=== PATIENT | male | born 1980 | race Caucasian/White ===

== ENCOUNTER 2019-07-27 21:33 | Inpatient (IN) | payer MEDICAID ==
[~2019-07-27] VITALS: Ht 185.4 cm; Wt 97.2 kg
[2019-07-27] MEDS ORDERED: DEXAMETHASONE 4 MG/ML, 1ML IVPB ONE (22:00)
[2019-07-27] MEDS ORDERED: AMPICILLIN/SULBACTAM 3 GM in SODIUM CHLORIDE 0.9% 100 ML IV ONE (22:00)
[2019-07-27] MEDS ORDERED: ONDANSETRON 2MG/ML, 2ML IVPush ONE (22:00)
[2019-07-27] MEDS ORDERED: MORPHINE SULFATE 4 MG/ML, 1ML IVPush PRN (22:00)
[2019-07-27] MEDS ORDERED: SODIUM CHLORIDE 0.9% 1,000ML IVBOLUS ONE (22:00)
[2019-07-27] MEDS ORDERED: SODIUM CHLORIDE FLUSH 10ML SYR IVF ONE (22:00)
[2019-07-27] MEDS ORDERED: DEXAMETHASONE 4 MG/ML, 5ML ONE (23:58)
--- NOTE | 2019-07-28 00:15 | NUR ---
FIRST CONTACT WITH PT. PT SITTING UP IN GURNEY, AWAKE/ALERT. NAD NOTED. PT REPORTS R JAW PAIN/SWELLING X TWO DAYS. +SUBJECTIVE FEVERS/DIFFICULTY & PAIN W SWALLOWING. AIRWAY APPEARS PATENT, SPEECH CLEAR. PT MANAGING OWN SECRETIONS. BP/SPO2 MONITORING IN PLACE. IV ESTBALISHED, LABS DRAWN. NO BC DRAWN PER ERP. PT MEDICATED PER EMAR FOR PAIN. PER ERP, HOLD MORPHINE/ZOFRAN AT THIS TIME. PT UPDATED TO POC (CT/LABS, RESULTS, RECHECK) AND DEMONSTRATES UNDERSTANDING.
[2019-07-28 00:25] LABS: BASOPHILS # (AUTO) 0.02 x10^3/uL (0-0.1); BASOPHILS % (AUTO) 0 % (0-1); EOSINOPHILS # (AUTO) 0.19 x10^3/uL (0-0.4); EOSINOPHILS % (AUTO) 1 % (1-7); LYMPHOCYTES # (AUTO) 1.25 x10^3/uL (1-3.4); LYMPHOCYTES % (AUTO) 9 % (22-44); MD NO; MEAN CORPUSCULAR HEMOGLOBIN 30.5 pg (27.5-34.5); MEAN CORPUSCULAR HGB CONC 34.4 g/dL (33.2-36.2); MEAN CORPUSCULAR VOLUME 88.7 fL (81-97); MEAN PLATELET VOLUME 8.5 fL (7.4-10.4); MONOCYTES # (AUTO) 0.99 x10^3/uL (0.2-0.8); MONOCYTES % (AUTO) 7 % (2-9); NEUTROPHILS # (AUTO) 11.99 x10^3/uL (1.8-6.8); NEUTROPHILS % (AUTO) 83 % (42-75); PLATELET COUNT 253 x10^3/uL (130-400); RED BLOOD COUNT 6.14 x10^6/uL (4.38-5.82); RED CELL DISTRIBUTION WIDTH 12.4 % (9.4-14.8)
[2019-07-28 00:35] LABS: ALBUMIN 3.7 g/dL (3.4-5.0); ANION GAP 7 mmol/L (5-15); CALCIUM 9.3 mg/dL (8.5-10.1); CHLORIDE 106 mmol/L (98-107); CREATININE 0.98 mg/dL (0.7-1.3)
--- NOTE | 2019-07-28 01:06 | NUR ---
PT TO CT
[2019-07-28] MEDS ORDERED: OMNIPAQUE 350 MG/ML, 100ML BOTTLE ONE (01:09)
--- NOTE | 2019-07-28 01:30 | NUR ---
PT RESTING IN GURNEY. NO S/S OF ABX RXN NOTED.
--- NOTE | 2019-07-28 01:35 | NUR ---
CALLED SIGNAL SYSTEM TESTING MAINTAINER REGARDING PENDING CT READ. SIGNAL SYSTEM TESTING MAINTAINER CALLED RADIOLOGY FOR READ
--- NOTE | 2019-07-28 02:12 | NUR ---
PT RESTING IN GURNEY W/ EYES CLOSED. EVEN/REGULAR RESPIRATIONS NOTED. PT EASILY ARROUSABLE TO VOICE AND REPORTS IMPROVMENT IN PAIN/SWELLING W MEDICATIONS. BEDSIDE REPORT TO RENATA HERNANDEZ
[2019-07-28] MEDS ORDERED: MORPHINE SULFATE 4 MG/ML, 1ML IVPush PRN (03:00)
[2019-07-28] MEDS ORDERED: ONDANSETRON 2MG/ML, 2ML IVPush PRN ×2 (03:00→05:30)
--- NOTE | 2019-07-28 03:37 | NUR ---
pt resting in bed, pt denied any wants or needs at this time.
[2019-07-28 05:19] VITALS: BP 112/73
[2019-07-28] MEDS ORDERED: SODIUM CHLORIDE 0.9% 1,000 ML IV SCH (05:21)
[2019-07-28] MEDS ORDERED: PROMETHAZINE 25 MG/ML, 1ML IM PRN (05:30)
[2019-07-28] MEDS ORDERED: ACETAMINOPHEN 325 MG TABLET PO PRN (05:30)
[2019-07-28] MEDS ORDERED: OXYcodone IR 5MG TABLET PO PRN (05:30)
[2019-07-28] MEDS ORDERED: BISACODYL 10 MG SUPP PR PRN (05:30)
[2019-07-28] MEDS ORDERED: POLYETHYLENE GLYCOL 17 GM PACKET PO PRN (05:30)
[2019-07-28] MEDS ORDERED: hydrALAzine 20 MG/ML, 1ML IVPush PRN (05:30)
[2019-07-28] MEDS ORDERED: DOCUSATE 100 MG CAPSULE PO PRN (05:30)
[2019-07-28] MEDS ORDERED: ONDANSETRON ODT 4 MG PO PRN (05:30)
[2019-07-28] MEDS ORDERED: morphine SULFATE 10 MG/ML, 1ML IVPush PRN (05:30)
[2019-07-28 06:38] LABS: FREE T4 (FREE THYROXINE) 1.51 ng/dL (0.76-1.46)
[2019-07-28] MEDS: AMPICILLIN/SULBACTAM 3 GM in SODIUM CHLORIDE 0.9% 100 ML IV SCH ×3 (06:41→17:30)
[2019-07-28] MEDS: DEXAMETHASONE 4 MG/ML, 1ML IVPush SCH ×2 (09:49→15:41)
[2019-07-29] MEDS ORDERED: SODIUM CHLORIDE 0.9% 1,000 ML IV SCH (05:21)
== END 2019-07-28 18:20 | disposition left against medical advice (07) | DRG 153 ==
LOC: ED 07-28 02:58 → EDIP 07-28 03:02 → ICU 07-28 04:36
PROVIDERS: ADMIT Internal Medicine; ATTEND Internal Medicine
DX: J05.10 Acute epiglottitis without obstruction (principal); J02.9 Acute pharyngitis, unspecified; F17.200 Nicotine dependence, unspecified, uncomplicated; Z53.29 Procedure and treatment not carried out because of patient's decision for other reasons; Z83.3 Family history of diabetes mellitus; Z79.899 Other long term (current) drug therapy
CPT/HCPCS: 36415; 70491; 80048; 82040; 83036; 83735; 84439; 84443; 85025; 87081; G0378; J0295; J1100; Q9967; J7030